=== PATIENT | male | born 1970 | race Caucasian/White ===

== ENCOUNTER → 2020-07-06 | Outpatient (CLI) | payer OTHER ==
[~2020-07-06] MED LIST: ASPIRIN 325MG325 MG PO; HYDROCHLOROTHIA25 MG PO; IBU800 MG PO; KEFLEX500 MG PO; LOPRESSOR100 MG PO; PERCOCET 10-321 EACH PO; PREDNISONE20 MG PO; VITAMIN C500 M4 PO; VITAMIN C500 MG PO; VITAMIN D3 PO; VITAMIN D31250 MCG PO
== END ==
LOC: KOH-I 08:56
DX: S92.002D Unspecified fracture of left calcaneus, subsequent encounter for fracture with routine healing (principal); Z98.890 Other specified postprocedural states; X58.XXXD Exposure to other specified factors, subsequent encounter
CPT/HCPCS: 73650

== ENCOUNTER → 2020-07-20 | Outpatient (CLI) | payer OTHER | LOC: KOH-I 08:45 | DX: S92.002A Unspecified fracture of left calcaneus, initial encounter for closed fracture (principal); M21.6X2 Other acquired deformities of left foot; Z96.698 Presence of other orthopedic joint implants | CPT/HCPCS: 73630; 73650 ==

== ENCOUNTER → 2020-10-19 | Outpatient (CLI) | payer OTHER | LOC: KOH-I 08:43 | DX: S92.002D Unspecified fracture of left calcaneus, subsequent encounter for fracture with routine healing (principal) | CPT/HCPCS: 73630; 73650 ==